=== PATIENT | male | born 1975 | race Hispanic/Latino ===

== ENCOUNTER 2017-01-24 09:05 | Observation (INO) | payer MEDICAID ==
[2017-01-24 09:05] VITALS: BMI 23.7
[2017-01-24 09:18] VITALS: TEMP 97.9
--- NOTE | 2017-01-24 09:18 | ED PDOC ---
Arrival/HPI - General Time Seen by Provider: 01/24/17 09:13 Historian: Patient - History of Present Illness Narrative History of Present Illness (Text): 01/24/17 09:14 41yr old male presents today brought in by ambulance and police for possible ETOH vs drug use. pt states he drank alcohol last night and used heroine last night. pt denies suicidal or homicidal ideations. Denies chest pain or Shortness of breath. Patient denies abdominal pain. No nausea or vomiting. Patient states he was just trying to get to [place] to his sister's house when the police picked him up. Patient denies any recent trauma or injury. No complaints Past Medical History - Provider Review Nursing Documentation Reviewed: Yes - Travel History Have you recently traveled outside [place] w/in the past 3 mons?: No - Past History Past History: Non-Contributing - Infectious Disease Hx of Infectious Diseases: None - Tetanus Immunization Tetanus Immunization: Unknown - Past Medical History Past Medical History: No Previous - Cardiac Hx Hypertension: No - Pulmonary Hx Tuberculosis: No - Neurological Hx Seizures: No - HEENT Hx HEENT Disorder: No - Renal Hx Renal Disorder: No - Endocrine/Metabolic Hx Endocrine Disorders: No - Hematological/Oncological Hx Blood Disorders: No - Integumentary Hx Dermatological Disorder: No - Musculoskeletal/Rheumatological Hx Musculoskeletal Disorders: No Hx Falls: No - Gastrointestinal Hx Gastrointestinal Disorders: No - Genitourinary/Gynecological Hx Genitourinary Disorders: No Hx Sexually Transmitted Diseases: No - Psychiatric Hx Bipolar Disorder: Yes Hx Depression: Yes Hx Substance Use: No - Past Surgical History Past Surgical History: No Previous - Surgical History Hx Orthopedic Surgery: Yes (Right ankle fx) - Anesthesia Hx Anesthesia: Yes Hx Anesthesia Reactions: No - Suicidal Assessment Feels Threatened In Home Enviroment: No Family/Social History - Physician Review Nursing Documentation Reviewed: Yes Family/Social History: Unknown Family HX Smoking Status: Heavy Smoker > 10 Cigarettes Daily Hx Alcohol Use: Yes (beer/liquor) Amount per day: 6 Hx Substance Use: No Substance used: HEROIN, COCCAINE Hx Substance Use Treatment: Yes Allergies/Home Meds Allergies/Adverse Reactions: Allergies No Known Allergies Allergy (Verified 01/24/17 09:16) Home Medications: Home Meds Medication Instructions Recorded Confirmed No Known Home Med 01/24/17 01/24/17 Review of Systems - Review of Systems Constitutional: absent: Fatigue, Fevers Respiratory: absent: SOB, Cough Cardiovascular: absent: Chest Pain, Palpitations Gastrointestinal: absent: Abdominal Pain, Constipation, Diarrhea, Nausea, Vomiting Genitourinary Male: absent: Dysuria Musculoskeletal: absent: Arthralgias, Back Pain, Neck Pain Skin: absent: Rash, Pruritis Neurological: absent: Headache, Dizziness Psychiatric: absent: Anxiety, Depression, Suicidal Ideation Physical Exam Vital Signs Temp Pulse Resp BP Pulse Ox 01/24/17 11:17 55 L 18 107/68 100 01/24/17 09:18 97.9 F 74 18 132/74 96 - Systems Exam Head: Present: Atraumatic Mouth: Present: Moist Mucous Membranes Respiratory/Chest: Present: Clear to Auscultation Cardiovascular: Present: Regular Rate and Rhythm Abdomen: No: Tenderness Neurological: Present: GCS=15 Skin: Present: Warm, Dry, Normal Color, Other (tract barry noted to forearms bilaterally without erythema, edema or tenderness.) Psychiatric: Present: Alert, Oriented x 3. No: Suicidal Ideation, Homicidal Ideation Medical Decision Making ED Course and Treatment: 01/24/17 09:19 41yr old male with hx of heroine use and etoh use. alert and oriented. no distress. will observe for sobriety. fingerstick; wnl pt reassessment; pt non toxic well appearing; no distress. ambulating with steady gait. alert and oriented x 3. clinically sober; will d/c home to f/u with pmd. advised f/u with pmd; advised return if symptoms worsen,persist or if new symptoms develop. Patient verbalizes understanding of discharge instructions and need for immediate followup. all aspects of this case were discussed the attending of record. impression: substance abuse follow up with the primary care physician within the next 2 days. increase fluids return if symptoms worsen, persist or if new symptoms develop. ED OBSERVATION Discharge: Yes Date of observation admission: 01/24/17 Time of observation admission: 09:20 - Observation admission statement Patient is being placed in observation because:: substance abuse - Goals of Observation Goals of observation are:: sobriety - Progress Note Progress Note: 01/24/17 11:30 pt sleeping in er; no distress. vitals stable. 01/24/17 12:47 pt alert and oriented; no distress; eating a sandwhich in er; vitals stable; ambulates with steady gait; clinically sober; will d/c home to f/u. Disposition/Present on Arrival - Present on Arrival Any Indicators Present on Arrival: No History of DVT/PE: No History of Uncontrolled Diabetes: No Urinary Catheter: No History of Decub. Ulcer: No History Surgical Site Infection Following: None - Disposition Have Diagnosis and Disposition been Completed?: Yes Diagnosis: Polysubstance abuse Disposition: HOME/ ROUTINE Disposition Time: 12:44 Patient Plan: Discharge Patient Problems: Current Active Problems Problem Status Onset Polysubstance abuse Acute Condition: GOOD Additional Instructions: follow up with the primary care physician within the next 2 days. increase fluids return if symptoms worsen, persist or if new symptoms develop. [facility] - Follow up with primary Matt Cunningham MD [Staff Provider] - Follow up with primary [facility] – [place] [Outside] - Follow up with primary
[2017-01-24 12:54] VITALS: BP 110/70; PULSE 70; RESP 12; O2SAT 98
== END 2017-01-24 12:54 | disposition home or self-care (01) ==
LOC: ED 09:05 → EROBSV 12:50
PROVIDERS: ADMIT Emergency Medicine; ATTEND Emergency Medicine
DX: F19.10 Other psychoactive substance abuse, uncomplicated (principal)
CPT/HCPCS: 99283; G0378

== ENCOUNTER 2017-06-11 19:57 | Emergency (ER) | payer MEDICAID ==
[2017-06-11 20:04] VITALS: BMI 24.4
[2017-06-11 20:26] VITALS: BP 134/87; PULSE 62; RESP 16; TEMP 98.2; O2SAT 97
--- NOTE | 2017-06-11 21:14 | ED PDOC ---
Arrival/HPI - General Chief Complaint: Lower Extremity Problem/Injury Time Seen by Provider: 06/11/17 20:01 Historian: Patient - History of Present Illness Narrative History of Present Illness (Text): 06/11/17 21:09 42yo male [place] [employer] for complaint of b/l foot pain. Patient states he walks a lot while wearing boot and developed blister. Notes same foot pain x months now. States pain is usually with ambulation. Did not take any medication for his pain. Denies edema, calf pain, redness, any other complaint. Past Medical History - Provider Review Nursing Documentation Reviewed: Yes - Past History Past History: Non-Contributing - Infectious Disease Hx of Infectious Diseases: None - Tetanus Immunization Tetanus Immunization: Unknown - Past Medical History Past Medical History: No Previous - Cardiac Hx Cardiac Disorders: No Hx Hypertension: No - Pulmonary Hx Tuberculosis: No - Neurological HX Cerebrovascular Accident: No Hx Seizures: No - HEENT Hx HEENT Disorder: No - Renal Hx Renal Disorder: No - Endocrine/Metabolic Hx Endocrine Disorders: No - Hematological/Oncological Hx Cancer: No - Integumentary Hx Dermatological Disorder: No - Musculoskeletal/Rheumatological Hx Musculoskeletal Disorders: No Hx Falls: No - Gastrointestinal Hx Gastrointestinal Disorders: No - Genitourinary/Gynecological Hx Sexually Transmitted Diseases: No - Psychiatric Hx Bipolar Disorder: Yes Hx Depression: Yes Hx Substance Use: Yes - Past Surgical History Past Surgical History: No Previous - Surgical History Hx Orthopedic Surgery: Yes (Right ankle fx) - Anesthesia Hx Anesthesia: Yes Hx Anesthesia Reactions: No - Suicidal Assessment Feels Threatened In Home Enviroment: No Family/Social History - Physician Review Nursing Documentation Reviewed: Yes Family/Social History: Unknown Family HX Smoking Status: Heavy Smoker > 10 Cigarettes Daily Hx Alcohol Use: Yes (beer/liquor) Amount per day: 6 Hx Substance Use: Yes Substance used: HEROIN, COCCAINE Hx Substance Use Treatment: Yes Allergies/Home Meds Allergies/Adverse Reactions: Allergies No Known Allergies Allergy (Verified 02/14/17 19:46) Review of Systems - Physician Review All systems were reviewed & negative as marked: Yes - Review of Systems Constitutional: Normal Eyes: Normal ENT: Normal Respiratory: Normal Cardiovascular: Normal Gastrointestinal: Normal Genitourinary Male: Normal Musculoskeletal: Arthralgias (B/L foot pain) Skin: Normal Neurological: Normal Endocrine: Normal Hemo/Lymphatic: Normal Psychiatric: Normal Physical Exam Vital Signs Reviewed: Yes Vital Signs Temp Pulse Resp BP Pulse Ox 06/11/17 20:04 98.2 F 62 16 134/87 97 Temperature: Afebrile Blood Pressure: Normal Pulse: Regular Respiratory Rate: Normal Appearance: Positive for: Well-Appearing, Non-Toxic, Comfortable Pain Distress: None Mental Status: Positive for: Alert and Oriented X 3 - Systems Exam Head: Present: Atraumatic, Normocephalic Pupils: Present: PERRL Extroacular Muscles: Present: EOMI Conjunctiva: Present: Normal Mouth: Present: Moist Mucous Membranes Neck: Present: Normal Range of Motion Respiratory/Chest: Present: Clear to Auscultation, Good Air Exchange. No: Respiratory Distress, Accessory Muscle Use Cardiovascular: Present: Regular Rate and Rhythm, Normal S1, S2. No: Murmurs Abdomen: Present: Normal Bowel Sounds. No: Tenderness, Distention, Peritoneal Signs Back: Present: Normal Inspection Upper Extremity: Present: Normal Inspection. No: Cyanosis, Edema Lower Extremity: Present: Normal Inspection, NORMAL PULSES, Normal ROM, Tenderness, Neurovascularly Intact, Other (Blister noted on right lateral foot) . No: Edema, CALF TENDERNESS, Swelling, Erythema, Deformity, Temperature Abnormalties Neurological: Present: GCS=15, CN II-XII Intact, Speech Normal Skin: Present: Warm, Dry, Normal Color. No: Rashes Psychiatric: Present: Alert, Oriented x 3, Normal Insight, Normal Concentration Medical Decision Making ED Course and Treatment: 06/11/17 22:50 B/L foot xray - No acute finding PT was treated with ibuprofen. Blister cleaned and bacitracin applied. Referred to a Area Captain - RAD Interpretation Radiology Orders: 06/11/17 20:37 FOOT 3 VIEWS BI [RAD] Stat - Medication Orders Current Medication Orders: Discontinued Medications Ibuprofen (Motrin Tab) 600 mg PO STAT STA Stop: 06/11/17 21:35 Last Admin: 06/11/17 21:57 Dose: 600 mg MAR Pain/Vitals Document 06/11/17 21:57 SC (Rec: 06/11/17 21:58 SC [id number]) Pain Reassessment Is This A Pain ReAssessment? No Sleep Is patient sleeping during reassessment? No Presence of Pain Presence of Pain Yes Pain Scale Used Pain Scale Used Numeric Location Left, Right or Bilateral Bilateral Pain Location Body Site Foot Intensity 5 Scale Used Numeric Disposition/Present on Arrival - Present on Arrival Any Indicators Present on Arrival: No History of DVT/PE: No History of Uncontrolled Diabetes: No Urinary Catheter: No History of Decub. Ulcer: No History Surgical Site Infection Following: None - Disposition Have Diagnosis and Disposition been Completed?: Yes Diagnosis: Foot pain Disposition: HOME/ ROUTINE Disposition Time: 21:40 Patient Plan: Discharge Condition: STABLE Discharge Instructions (ExitCare): Arthralgia (ED) Additional Instructions: Follow up with a Area Captain Return to ED for any new or worsening symptoms Cleared for incarceration Prescriptions: Ibuprofen [Motrin Tab] 600 mg PO Q6 #20 tab Referrals: Elroy Arzola APN [Primary Care Provider] - Follow up with primary Forms: [employer] ([place]i)
--- NOTE | 2017-06-12 08:33 | RAD ---
PROCEDURE: Bilateral Feet Radiographs. HISTORY: foot pain COMPARISON: None. FINDINGS: BONES: Right Foot: Normal. No fracture. Left Foot: Normal. No fracture. JOINTS: Right Foot: Normal. No osteoarthritis. Left Foot: Normal. No osteoarthritis. SOFT TISSUES: Right Foot: Normal. Left Foot: Normal. OTHER FINDINGS: None. IMPRESSION: Normal radiographs of the feet.
--- NOTE | 2017-06-12 21:00 | CARD ---
APPROVED REPORT EKG Measurement Heart [id number] <Conclusion> Marked sinus bradycardia Abnormal ECG
== END 2017-06-11 22:00 | disposition home or self-care (01) ==
LOC: ED 19:57
DX: M79.672 Pain in left foot (principal); M79.671 Pain in right foot; F17.210 Nicotine dependence, cigarettes, uncomplicated

== ENCOUNTER 2017-06-26 11:13 | Emergency (ER) | payer MEDICAID ==
[2017-06-26 11:13] VITALS: BMI 24.4
[2017-06-26 11:34] VITALS: TEMP 97.6; O2SAT 99
--- NOTE | 2017-06-26 12:21 | ED PDOC ---
Arrival/HPI - General Chief Complaint: Alcohol Ingestion Time Seen by Provider: 06/26/17 11:26 Historian: Patient, EMS - History of Present Illness Narrative History of Present Illness (Text): 06/26/17 12:00 A 42 year old male, whose past medical history includes chronic foot pain bilaterally, etoh and drug dependence, presents to the emergency department via EMS for chronic foot pain, which the patient states he has had for the last several years. EMS states they found him washing his feet. He reports the pain is bilateral and is in the heel and plantar aspect. He states he's been taking Aleve for the pain and his last dosage was yesterday. He also admits to using etoh, heroin, and cocaine. His last etoh use was today and his last dug use was yesterday. He notes he sniffs and uses IV when using heroin. He denies any numbness, weakness, chest pain, or any other complaints at this time. Time/Duration: Other Symptom Onset: Other (chronic) Symptom Course: Unchanged Activities at Onset: Light Context: Walking Past Medical History - Provider Review Nursing Documentation Reviewed: Yes - Past History Past History: Non-Contributing - Infectious Disease Hx of Infectious Diseases: None - Tetanus Immunization Tetanus Immunization: Unknown - Past Medical History Past Medical History: No Previous - Cardiac Hx Cardiac Disorders: No - Pulmonary Hx Tuberculosis: No - Neurological HX Cerebrovascular Accident: No - HEENT Hx HEENT Disorder: No - Renal Hx Renal Disorder: No - Endocrine/Metabolic Hx Endocrine Disorders: No - Hematological/Oncological Hx Cancer: No - Integumentary Hx Dermatological Disorder: No - Musculoskeletal/Rheumatological Hx Musculoskeletal Disorders: No - Gastrointestinal Hx Gastrointestinal Disorders: No - Genitourinary/Gynecological Hx Sexually Transmitted Diseases: No - Psychiatric Hx Bipolar Disorder: Yes Hx Depression: Yes Hx Substance Use: Yes (last used last night) Other/Comment: Drug and alcohol abuse - Past Surgical History Past Surgical History: No Previous - Surgical History Hx Orthopedic Surgery: Yes (Right ankle fx) - Anesthesia Hx Anesthesia: Yes Hx Anesthesia Reactions: No - Suicidal Assessment Feels Threatened In Home Enviroment: No Family/Social History - Physician Review Nursing Documentation Reviewed: Yes Family/Social History: No Known Family HX Smoking Status: Heavy Smoker > 10 Cigarettes Daily Hx Alcohol Use: Yes (beer/liquor) Frequency of alcohol use: Daily Amount per day: 6 Hx Substance Use: Yes (last used last night) Substance used: HEROIN, COCCAINE Hx Substance Use Treatment: Yes Allergies/Home Meds Allergies/Adverse Reactions: Allergies No Known Allergies Allergy (Verified 06/26/17 11:29) Home Medications: Home Meds Medication Instructions Recorded Confirmed No Known Home Med 06/26/17 06/26/17 Review of Systems - Physician Review All systems were reviewed & negative as marked: Yes - Review of Systems Cardiovascular: absent: Chest Pain Musculoskeletal: Other (bilateral foot pain ) Neurological: absent: Other (numbness or weakness) Physical Exam Vital Signs Reviewed: Yes Vital Signs Temp Pulse Resp BP Pulse Ox 06/26/17 13:10 80 17 120/75 99 06/26/17 11:33 97.6 F 83 19 117/69 99 Temperature: Afebrile Blood Pressure: Normal Pulse: Regular Respiratory Rate: Normal Appearance: Positive for: Well-Appearing, Non-Toxic, Comfortable Pain Distress: None Mental Status: Positive for: Alert and Oriented X 3 - Systems Exam Head: Present: Atraumatic, Normocephalic Pupils: Present: PERRL Extroacular Muscles: Present: EOMI Conjunctiva: Present: Normal Mouth: Present: Moist Mucous Membranes Neck: Present: Normal Range of Motion Respiratory/Chest: Present: Clear to Auscultation, Good Air Exchange. No: Respiratory Distress, Accessory Muscle Use Cardiovascular: Present: Regular Rate and Rhythm, Normal S1, S2. No: Murmurs Abdomen: Present: Normal Bowel Sounds. No: Tenderness, Distention, Peritoneal Signs Back: Present: Normal Inspection Upper Extremity: Present: Normal Inspection. No: Cyanosis, Edema Lower Extremity: Present: Other (bilateral calluses; no redness; no warmth; tenderness to calluses; normal sensation and strength intact) Neurological: Present: GCS=15, CN II-XII Intact, Speech Normal Skin: Present: Warm, Dry, Normal Color. No: Rashes Psychiatric: Present: Alert, Oriented x 3, Normal Insight, Normal Concentration Medical Decision Making ED Course and Treatment: 06/26/17 12:05 Impression: Differential Diagnosis included but are not limited to: Foot pain secondary to neuropathy vs. plantar fasciitis vs. etoh and drug dependence Plan: -- Fingerstick -- Toradol -- Reassess and disposition Progress Notes: 06/26/17 12:05 Pateint is clinically sober at this time. He is able to walk with no ataxia. No slurred speech. I will refer the patient to detox centers. He said he's aware of [facility]'s program so he will go there. - Lab Interpretations Lab Results: Lab Results 06/26/17 11:49: POC Glucose (mg/dL) 113 H - Medication Orders Current Medication Orders: Discontinued Medications Ketorolac Tromethamine (Toradol) 60 mg IM STAT STA Stop: 06/26/17 11:44 Last Admin: 06/26/17 11:53 Dose: 60 mg MAR Pain Assessment Document 06/26/17 11:53 SF (Rec: 06/26/17 11:53 SF [facility] [id number] Pain Reassessment Is this a pain reassessment? Yes Sleep Is patient sleeping during reassessment? No Presence of Pain Presence of Pain Yes Pain Scale Used Pain Scale Used Numeric Location Left, Right or Bilateral Bilateral Pain Location Body Site Foot IM Administration Charges Document 06/26/17 11:53 SF (Rec: 06/26/17 11:53 [place] [facility] [id number] Injection Site MAR Injection Site Left Deltoid Charges for Administration # of IM Administrations 1 - Scribe Statement The provider has reviewed the documentation as recorded by the Patriciaibsonya Harris Provider Scribe Attestation: All medical record entries made by the Scribe were at my direction and personally dictated by me. I have reviewed the chart and agree that the record accurately reflects my personal performance of the history, physical exam, medical decision making, and the department course for this patient. I have also personally directed, reviewed, and agree with the discharge instructions and disposition. Disposition/Present on Arrival - Present on Arrival Any Indicators Present on Arrival: No History of DVT/PE: No History of Uncontrolled Diabetes: No Urinary Catheter: No History of Decub. Ulcer: No History Surgical Site Infection Following: None - Disposition Have Diagnosis and Disposition been Completed?: Yes Diagnosis: Opiate dependence, Alcohol dependence, Foot pain Disposition: HOME/ ROUTINE Disposition Time: 13:00 Patient Plan: Discharge Condition: IMPROVED Discharge Instructions (ExitCare): Polysubstance Abuse (ED), Arthralgia (ED) Additional Instructions: Mr Leiv, thank you for letting us take care of you today. Your provider was Dr. Aleman. You were treated for Alcohol and Drug Dependence, Foot Pain. The emergency medical care you received today was directed at your acute symptoms. If you were prescribed any medication, please fill it and take as directed. It may take several days for your symptoms to resolve. Return to the Emergency Department if your symptoms worsen, do not improve, or if you have any other problems. Please contact your doctor or call one of the physicians/clinics you have been referred to that are listed on the Patient Visit Information form that is included in your discharge packet. Bring any paperwork you were given at discharge with you along with any medications you are taking to your follow up visit. Our treatment cannot replace ongoing medical care by a primary care provider (PCP) outside of the emergency department. Thank you for allowing the [facility] team to be part of your care today. If you had an X-Ray or CT scan: A Radiologist will review the ED reading if any change in treatment is needed we will contact you. If you had a blood, urine, or wound culture: It will take several days for the results, if any change in treatment is needed we will contact you. If you had an STI test: It will take 48 hours for the results. Please call after 1 week if you have not heard back. Referrals: Angela Alexander MD [Primary Care Provider] - Follow up with primary Forms: [employer] (M[place]ese)
[2017-06-26 13:12] VITALS: BP 120/75; PULSE 80; RESP 17
== END 2017-06-26 13:12 | disposition home or self-care (01) ==
LOC: ED 11:13
DX: M79.671 Pain in right foot (principal); F10.20 Alcohol dependence, uncomplicated; F11.20 Opioid dependence, uncomplicated; F17.210 Nicotine dependence, cigarettes, uncomplicated
CPT/HCPCS: 82948; 96372; 99284; J1885

== ENCOUNTER 2017-07-20 04:37 | Emergency (ER) | payer MEDICAID ==
[2017-07-20 04:37] VITALS: BMI 24.4
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
[2017-07-20 04:54] VITALS: TEMP 98.9
[2017-07-20] MEDS ORDERED: Morphine 2 mg/ml ISec IM STA (05:15)
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
[2017-07-20] MEDS ORDERED: TDAP Vaccine 0.5 mL Syr IM ONE (07:49)
[2017-07-20 08:08] VITALS: BP 120/78; PULSE 89; RESP 18; O2SAT 98
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
== END 2017-07-20 09:29 | disposition home or self-care (01) ==
LOC: ED 04:37
DX: S01.01XA Laceration without foreign body of scalp, initial encounter (principal); S01.111A Laceration without foreign body of right eyelid and periocular area, initial encounter; S52.002A Unspecified fracture of upper end of left ulna, initial encounter for closed fracture; Y04.0XXA Assault by unarmed brawl or fight, initial encounter; Z23 Encounter for immunization
CPT/HCPCS: 12001; 12011; 70450; 73090; 90471; 90715; 96372; 99284; J2270

== ENCOUNTER 2017-07-28 10:40 | Emergency (ER) | payer MEDICAID ==
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
[2017-07-28 11:34] VITALS: BMI 30.9
[2017-07-28 12:20] VITALS: RESP 16; TEMP 97.9; O2SAT 100
[2017-07-28 13:25] VITALS: BP 138/82; PULSE 82
== END 2017-07-28 13:15 | disposition home or self-care (01) ==
LOC: ED 10:40
DX: S52.002D Unspecified fracture of upper end of left ulna, subsequent encounter for closed fracture with routine healing (principal); Y04.0XXD Assault by unarmed brawl or fight, subsequent encounter

== ENCOUNTER 2017-08-06 14:20 | Emergency (ER) | payer MEDICAID ==
[2017-08-06 14:21] VITALS: BMI 21.2
[2017-08-06 15:17] VITALS: TEMP 98.3
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
--- NOTE | 2017-08-06 19:30 | ED PDOC ---
Arrival/HPI - General Chief Complaint: Upper Extremity Problem/Injury Time Seen by Provider: 08/06/17 14:21 Historian: Patient - History of Present Illness Narrative History of Present Illness (Text): 08/06/17 19:23 42-year-old male presents today with left arm pain. Patient states he had fracture to the left arm weeks ago. Patient states he removed the splint. Patient is complaining of pain. Denies fevers or chills. Denies numbness weakness or tingling in the extremity. pt states he hasnt f/u with orthopedist. pt denies fever/chills. no cp or sob. no abdominal pain. no dizziness or weakness. no other complaints. Symptom Course: Unchanged Past Medical History - Provider Review Nursing Documentation Reviewed: Yes - Travel History Have you recently traveled outside [place] w/in the past 3 mons?: No - Past History Past History: Non-Contributing - Infectious Disease Hx of Infectious Diseases: None - Tetanus Immunization Tetanus Immunization: Unknown - Past Medical History Past Medical History: No Previous - Cardiac Hx Cardiac Disorders: No - Pulmonary Hx Tuberculosis: No - Neurological HX Cerebrovascular Accident: No - HEENT Hx HEENT Disorder: No - Renal Hx Renal Disorder: No - Endocrine/Metabolic Hx Endocrine Disorders: No - Hematological/Oncological Hx Cancer: No - Integumentary Hx Dermatological Disorder: No - Musculoskeletal/Rheumatological Hx Musculoskeletal Disorders: No - Gastrointestinal Hx Gastrointestinal Disorders: No - Genitourinary/Gynecological Hx Sexually Transmitted Diseases: No - Psychiatric Hx Bipolar Disorder: Yes Hx Depression: Yes Hx Substance Use: Yes (last used last night) Other/Comment: Drug and alcohol abuse - Past Surgical History Past Surgical History: No Previous - Surgical History Hx Orthopedic Surgery: Yes (Right ankle fx) - Anesthesia Hx Anesthesia: Yes Hx Anesthesia Reactions: No - Suicidal Assessment Feels Threatened In Home Enviroment: No Family/Social History - Physician Review Nursing Documentation Reviewed: Yes Family/Social History: Unknown Family HX Smoking Status: Light Smoker < 10 Cigarettes Daily Hx Alcohol Use: Yes (beer/liquor) Frequency of alcohol use: Socially Amount per day: 6 Hx Substance Use: Yes (last used last night) Substance used: HEROIN, COCCAINE Hx Substance Use Treatment: Yes Allergies/Home Meds Allergies/Adverse Reactions: Allergies No Known Allergies Allergy (Verified 08/06/17 14:37) Home Medications: Home Meds Medication Instructions Recorded Confirmed No Known Home Med 12/13/17 12/13/17 Review of Systems - Review of Systems Constitutional: absent: Fatigue, Fevers Respiratory: absent: SOB, Cough Cardiovascular: absent: Chest Pain, Palpitations Gastrointestinal: absent: Abdominal Pain, Nausea, Vomiting Musculoskeletal: Arthralgias Skin: absent: Rash, Pruritis Neurological: absent: Headache, Dizziness Psychiatric: absent: Anxiety, Depression Physical Exam Vital Signs Reviewed: Yes Vital Signs Temp Pulse Resp BP Pulse Ox 08/06/17 19:35 90 16 142/87 100 08/06/17 17:31 75 18 143/65 99 08/06/17 16:03 79 18 145/69 99 08/06/17 14:59 98.3 F 86 17 148/73 99 08/06/17 14:32 98.2 F 90 16 126/82 100 Temperature: Afebrile Blood Pressure: Normal Pulse: Regular Respiratory Rate: Normal Appearance: Positive for: Well-Appearing, Non-Toxic, Comfortable Pain Distress: None Mental Status: Positive for: Alert and Oriented X 3 - Systems Exam Mouth: Present: Moist Mucous Membranes Neck: Present: Normal Range of Motion Respiratory/Chest: Present: Clear to Auscultation Cardiovascular: Present: Regular Rate and Rhythm Upper Extremity: Present: Normal ROM, NORMAL PULSES, Tenderness (left arm; + ttp over midshaft forearm; no edema, no erythema; no ecchymosis; sensation and distal pulses intact; cap refill <2. ), Neurovascularly Intact, Capillary Refill < 2s. No: Swelling, Erythema, Deformity Neurological: Present: GCS=15, Speech Normal Skin: Present: Warm, Dry, Normal Color. No: Rashes Psychiatric: Present: Alert, Oriented x 3 Medical Decision Making ED Course and Treatment: 08/06/17 19:32 42-year-old male with fracture to the left ulna on 07/20/17 without following up with the orthopedist. He presents today with continued arm pain. He has removed his own splint. X-rays of the left forearm:FINDINGS: BONES: The proximal ulnar diaphyseal mildly comminuted fracture with large butterfly fracture fragment has fracture fragments approximately 3 to 4 mm this is accentuated on the current projection. No other significant displacement is noted. No bridging callus formation suggested JOINT SPACES: Unremarkable. OTHER FINDINGS: None. IMPRESSION: Mildly comminuted proximal ulnar shaft fracture with dominant butterfly fracture fragment - from distal ulna approximate 4 mm. This separation of fracture fragments is accentuated on the current study - probably due projectional differences. No greater displacement or interval angulation deformity noted. No interval healing callus formation appreciated. Follow-up advised Case discussed with dr. Olguin in depth. He reviewed the x-rays. States that the patient should be placed into a sugar tong splint and follow up outpatient. Patient given Toradol for pain. Patient placed into a sugar tong splint. Sling applied. Patient requesting prescription for pain medications. I have advised the patient that I will give him one tramadol for pain here and he can take Motrin for pain at home. Patient with a known history of IV drug use and prior overdose. Impression: Arm pain, fracture ulna You must follow-up with the orthopedist as soon as possible motrin every 6 hours as needed for pain. return if symptoms worsen,persist or if new symptoms develop. - RAD Interpretation Radiology Orders: 08/06/17 14:58 FOREARM LEFT [RAD] Stat - Medication Orders Current Medication Orders: Discontinued Medications Ketorolac Tromethamine (Toradol) 60 mg IM STAT STA Stop: 08/06/17 14:59 Last Admin: 08/06/17 15:04 Dose: 60 mg MAR Pain Assessment Document 08/06/17 15:04 [place] (Rec: 08/06/17 15:05 [id number]) Pain Reassessment Is this a pain reassessment? No Sleep Is patient sleeping during reassessment? No Presence of Pain Presence of Pain Yes Location Left, Right or Bilateral Left Pain Location Body Site Arm IM Administration Charges Document 08/06/17 15:04 [place] (Rec: 08/06/17 15:05 [id number]) Injection Site MAR Injection Site Left Gluteus Leonardo Charges for Administration # of IM Administrations 1 Re-Assess: MAR Pain Assessment Document 08/06/17 16:04 [place] (Rec: 08/06/17 19:27 [id number]) Pain Reassessment Is this a pain reassessment? Yes Sleep Is patient sleeping during reassessment? Yes Tramadol HCl (Ultram) 50 mg PO STAT STA Stop: 08/06/17 19:23 Last Admin: 08/06/17 19:32 Dose: 50 mg MAR Pain Assessment Document 08/06/17 19:32 [place] (Rec: 08/06/17 19:32 [id number]) Pain Reassessment Is this a pain reassessment? Yes Sleep Is patient sleeping during reassessment? No Presence of Pain Presence of Pain Yes Procedures - Splinting Location: left arm Hand-Made Type: fiberglass Splint: sugar-tong Pre-Proc Neuro Vasc Exam: normal Post-Proc Neuro Vasc Exam: normal Disposition/Present on Arrival - Present on Arrival Any Indicators Present on Arrival: No History of DVT/PE: No History of Uncontrolled Diabetes: No Urinary Catheter: No History of Decub. Ulcer: No History Surgical Site Infection Following: None - Disposition Have Diagnosis and Disposition been Completed?: Yes Diagnosis: Arm pain, Hx of fracture Disposition: HOME/ ROUTINE Disposition Time: 18:20 Patient Plan: Discharge Condition: GOOD Discharge Instructions (ExitCare): Arm Fracture in Adults (ED) Additional Instructions: You must follow-up with the orthopedist as soon as possible motrin every 6 hours as needed for pain. return if symptoms worsen,persist or if new symptoms develop. Referrals: Marina Alexander MD [Primary Care Provider] - Follow up with primary Wayne Olguin DO [Staff Provider] - Follow up with primary [facility] [Outside] - Follow up with primary [facility] [Outside] - Follow up with primary Forms: [employer] ([place])
[2017-08-06 19:55] VITALS: BP 142/87; PULSE 90; RESP 16; O2SAT 100
== END 2017-08-06 19:35 | disposition home or self-care (01) ==
LOC: ED 14:20
DX: M79.602 Pain in left arm (principal); S52.202A Unspecified fracture of shaft of left ulna, initial encounter for closed fracture; X58.XXXA Exposure to other specified factors, initial encounter; F17.210 Nicotine dependence, cigarettes, uncomplicated
CPT/HCPCS: 29105; 73090; 96372; 99284; J1885

== ENCOUNTER 2018-03-04 00:28 | Emergency (ER) | payer SELFPAY ==
[2018-03-04 00:28] VITALS: BMI 21.2
[2018-03-04 00:56] VITALS: TEMP 97.3
--- NOTE | 2018-03-04 01:17 | ED PDOC ---
Arrival/HPI - General Chief Complaint: Pain, Chronic Time Seen by Provider: 03/04/18 01:04 Historian: Patient - History of Present Illness Narrative History of Present Illness (Text): 03/04/18 01:12 42yo male with pmhx of substance abuse, alcohol abuse, depression who present with complaint of chronic left shoulder pain and b/l extremities burning pain. Notes history of these pain for weeks. States he was suppose to see his PMD for a referral, but have not called his insurance company for a new PMD. He denies any new trauma, focal weakness, chest pain, SOB, dizziness. Past Medical History - Provider Review Nursing Documentation Reviewed: Yes - Past History Past History: Non-Contributing - Infectious Disease Hx of Infectious Diseases: None - Tetanus Immunization Tetanus Immunization: Unknown - Past Medical History Past Medical History: No Previous - Cardiac Hx Cardiac Disorders: No - Pulmonary Hx Tuberculosis: No - Neurological HX Cerebrovascular Accident: No - HEENT Hx HEENT Disorder: No - Renal Hx Renal Disorder: No - Endocrine/Metabolic Hx Endocrine Disorders: No - Hematological/Oncological Hx Cancer: No - Integumentary Hx Dermatological Disorder: No - Musculoskeletal/Rheumatological Hx Musculoskeletal Disorders: No - Gastrointestinal Hx Gastrointestinal Disorders: No - Genitourinary/Gynecological Hx Sexually Transmitted Diseases: No - Psychiatric Hx Bipolar Disorder: Yes Hx Depression: Yes Hx Substance Use: Yes - Past Surgical History Past Surgical History: No Previous - Surgical History Hx Orthopedic Surgery: Yes (Right ankle fx) - Anesthesia Hx Anesthesia: Yes Hx Anesthesia Reactions: No - Suicidal Assessment Feels Threatened In Home Enviroment: No Family/Social History - Physician Review Nursing Documentation Reviewed: Yes Family/Social History: Unknown Family HX Smoking Status: Heavy Smoker > 10 Cigarettes Daily Hx Alcohol Use: Yes (beer/liquor) Amount per day: 6 Hx Substance Use: Yes Substance used: HEROIN, COCCAINE,opiates Hx Substance Use Treatment: Yes Allergies/Home Meds Allergies/Adverse Reactions: Allergies No Known Allergies Allergy (Verified 08/28/17 21:33) Home Medications: Home Meds Medication Instructions Recorded Confirmed Divalproex [Depakote ER] 500 mg PO BID 08/28/17 08/28/17 Escitalopram [Lexapro] 10 mg PO BID 08/28/17 08/28/17 Review of Systems - Physician Review All systems were reviewed & negative as marked: Yes - Review of Systems Constitutional: Normal Eyes: Normal ENT: Normal Respiratory: Normal Cardiovascular: Normal Gastrointestinal: Normal Genitourinary Male: Normal Musculoskeletal: Arthralgias (Left shoulder pain) Skin: Normal Neurological: Normal Endocrine: Normal Hemo/Lymphatic: Normal Psychiatric: Normal Physical Exam Vital Signs Reviewed: Yes Vital Signs Temp Pulse Resp BP Pulse Ox 03/04/18 00:54 97.3 F L 88 16 140/78 97 Temperature: Afebrile Blood Pressure: Normal Pulse: Regular Respiratory Rate: Normal Appearance: Positive for: Well-Appearing, Non-Toxic, Comfortable Pain Distress: None Mental Status: Positive for: Alert and Oriented X 3 - Systems Exam Head: Present: Atraumatic, Normocephalic Pupils: Present: PERRL Extroacular Muscles: Present: EOMI Conjunctiva: Present: Normal Mouth: Present: Moist Mucous Membranes Neck: Present: Normal Range of Motion Respiratory/Chest: Present: Clear to Auscultation, Good Air Exchange. No: Respiratory Distress, Accessory Muscle Use Cardiovascular: Present: Regular Rate and Rhythm, Normal S1, S2. No: Murmurs Abdomen: No: Tenderness, Distention, Peritoneal Signs Back: Present: Normal Inspection Upper Extremity: Present: Normal ROM, NORMAL PULSES, Neurovascularly Intact, Capillary Refill < 2s. No: Cyanosis, Edema, Tenderness, Swelling, Erythema, Temperature Abnormalties, Deformity Lower Extremity: Present: Normal Inspection. No: Edema Neurological: Present: GCS=15, CN II-XII Intact, Speech Normal Skin: Present: Warm, Dry, Normal Color. No: Rashes Psychiatric: Present: Alert, Oriented x 3, Normal Insight, Normal Concentration Disposition/Present on Arrival - Present on Arrival Any Indicators Present on Arrival: No History of DVT/PE: No History of Uncontrolled Diabetes: No Urinary Catheter: No History of Decub. Ulcer: No History Surgical Site Infection Following: None - Disposition Have Diagnosis and Disposition been Completed?: Yes Diagnosis: Shoulder pain Disposition: HOME/ ROUTINE Disposition Time: 01:30 Patient Plan: Discharge Condition: STABLE Discharge Instructions (ExitCare): Shoulder Pain (DC) Additional Instructions: Follow up with Orthopedist/Neurologist Return to ED for any new or worsening symptoms Prescriptions: Naproxen [Naprosyn] 500 mg PO BID #20 tablet Referrals: Que Amaya III, MD [Medical Doctor] - Follow up with primary Adeel Diaz MD [Staff Provider] - Follow up with primary
[2018-03-04 03:05] VITALS: BP 124/79; PULSE 69; RESP 17; O2SAT 99
== END 2018-03-04 01:38 | disposition home or self-care (01) ==
LOC: ED 00:28
DX: M25.512 Pain in left shoulder (principal); F17.210 Nicotine dependence, cigarettes, uncomplicated
CPT/HCPCS: 96372; 99283; J1885

== ENCOUNTER 2018-04-03 10:59 | Emergency (ER) | payer MEDICAID ==
[2018-04-03 11:18] VITALS: TEMP 97.8; BMI 26.0
--- NOTE | 2018-04-03 11:48 | ED PDOC ---
Arrival/HPI - History of Present Illness Time/Duration: 24 hours Symptom Course: Improving Activities at Onset: Rest Context: Standing, Walking <Raúl Garcia - Last Filed: 04/03/18 18:06> <Alfredo Padilla - Last Filed: 04/03/18 18:53> - General Chief Complaint: Lower Extremity Problem/Injury Time Seen by Provider: 04/03/18 11:22 - History of Present Illness Narrative History of Present Illness (Text): 04/03/18 12:26 Mr Renner is a 43 year old male with unknown PMHx, history of bipolar/depression who presents with bilateral foot pain and exhaustion. Patient has been on and of homeless for last couple of years, recently living in his car, and has had increasing foot pain for 2-3 months as well. The pain is sharp pain on the soles of his feet, which sometimes shoots up his legs bilaterally. Today the patient states he was walking outside in the sun and felt exhausted and like he might pass out, but denies passing out or falling. He has been drinking plenty of fluids and also reports urinating more frequently than usual. Patient states he has problems with bipolar and depression. He has been feeling like his depression has been worse than usual and has gotten out of control. He has had some suicidal thoughts but does not have any concrete plans for hurting himself. The patient has seen a psychiatrist in the past and has been hospitalized for psych issues years ago but does not currently have a psychiatrist or primary doctor. He also admits to self medicating on and off with alcohol and heroin (intranasal). He denies drinking alcohol recently but has recently used heroin. Pt denies homicidal ideation or hallucinations/ delusions. Discussed with patient about getting him into a care home, and he is open to having social work set him up with a care home. (Raúl Garcia) Past Medical History - Provider Review Nursing Documentation Reviewed: Yes <Raúl Garcia - Last Filed: 04/03/18 18:06> - Provider Review Nursing Documentation Reviewed: Yes - Past History Past History: Non-Contributing - Infectious Disease Hx of Infectious Diseases: None - Tetanus Immunization Tetanus Immunization: Unknown - Past Medical History Past Medical History: No Previous - Cardiac Hx Cardiac Disorders: No - Pulmonary Hx Tuberculosis: No - Neurological HX Cerebrovascular Accident: No - HEENT Hx HEENT Disorder: No - Renal Hx Renal Disorder: No - Endocrine/Metabolic Hx Endocrine Disorders: No - Hematological/Oncological Hx Cancer: No - Integumentary Hx Dermatological Disorder: No - Musculoskeletal/Rheumatological Hx Musculoskeletal Disorders: No - Gastrointestinal Hx Gastrointestinal Disorders: No - Genitourinary/Gynecological Hx Sexually Transmitted Diseases: No - Psychiatric Hx Bipolar Disorder: Yes Hx Depression: Yes Hx Substance Use: Yes - Past Surgical History Past Surgical History: No Previous - Surgical History Hx Orthopedic Surgery: Yes (Right ankle fx) - Anesthesia Hx Anesthesia: Yes Hx Anesthesia Reactions: No Hx Malignant Hyperthermia: No - Suicidal Assessment Feels Threatened In Home Enviroment: No <PadillaAlfredo - Last Filed: 04/03/18 18:53> Family/Social History - Physician Review Nursing Documentation Reviewed: Yes Family/Social History: Unknown Family HX <Raúl Garcia - Last Filed: 04/03/18 18:06> - Physician Review Nursing Documentation Reviewed: Yes Smoking Status: Heavy Smoker > 10 Cigarettes Daily Hx Alcohol Use: Yes (beer/liquor) Amount per day: 6 Hx Substance Use: Yes Substance used: HEROIN, COCCAINE,opiates Hx Substance Use Treatment: Yes <RandyAlfredo - Last Filed: 04/03/18 18:53> Allergies/Home Meds <Raúl Garcia - Last Filed: 04/03/18 18:06> <PadillaAlfredo - Last Filed: 04/03/18 18:53> Allergies/Adverse Reactions: Allergies No Known Allergies Allergy (Verified 04/03/18 11:16) Review of Systems - Physician Review All systems were reviewed & negative as marked: Yes - Review of Systems Constitutional: Fatigue. absent: Weight Change, Fevers Eyes: Normal. absent: Vision Changes, Photophobia ENT: Normal. absent: Sore Throat, Rhinorrhea Respiratory: SOB. absent: Cough, Sputum, Wheezing (+mild shortness of breath) Cardiovascular: Normal. absent: Chest Pain, Palpitations, Edema, Calf Pain Gastrointestinal: Normal. absent: Abdominal Pain, Constipation, Nausea, Vomiting Genitourinary Male: Frequency. absent: Dysuria, Hematuria Musculoskeletal: Normal. absent: Arthralgias, Back Pain, Neck Pain Skin: Normal. absent: Rash, Pruritis, Skin Lesions, Laceration Neurological: Dizziness. absent: Headache, Focal Weakness, Speech Changes Endocrine: Normal, Polyuria, Polydipsia Psychiatric: Depression, Suicidal Ideation (Patient does not have plans to hurt himself), Other (Denies homicidal ideation, hallucinations, delusions) <HenrymaraRaúl - Last Filed: 04/03/18 18:06> - Physician Review All systems were reviewed & negative as marked: Yes <Alfredo Padilla - Last Filed: 04/03/18 18:53> Physical Exam Vital Signs Reviewed: Yes Temperature: Afebrile Blood Pressure: Normal Pulse: Regular Respiratory Rate: Normal Appearance: Positive for: Non-Toxic Pain Distress: Mild Mental Status: Positive for: Alert and Oriented X 3. No: Confused, Agitated - Systems Exam Head: Present: Atraumatic, Normocephalic Pupils: Present: PERRL Extroacular Muscles: Present: EOMI Conjunctiva: Present: Normal Mouth: Present: Moist Mucous Membranes, Normal Lips, Normal Tounge (+poor dentition), Other (+poor dentition) Pharnyx: Present: Normal. No: ERYTHEMA, EXUDATE Nose (External): Present: Atraumatic Neck: Present: Normal Range of Motion. No: JVD Respiratory/Chest: Present: Clear to Auscultation, Good Air Exchange. No: Respiratory Distress, Accessory Muscle Use, Wheezes Cardiovascular: Present: Regular Rate and Rhythm, Normal S1, S2. No: Murmurs Abdomen: Present: Normal Bowel Sounds. No: Tenderness, Distention, Peritoneal Signs, Rebound, Guarding Upper Extremity: Present: Normal Inspection, NORMAL PULSES. No: Cyanosis, Edema Lower Extremity: Present: Normal Inspection, NORMAL PULSES. No: Edema, Cyanosis , Erythema Neurological: Present: GCS=15, CN II-XII Intact, Speech Normal Skin: Present: Warm, Dry, Normal Color. No: Rashes Psychiatric: Present: Alert, Oriented x 3, Normal Concentration, Normal Affect, Suicidal Ideation. No: Homicidal Ideation, Delusional, Hallucinations <HenrymaraRalú - Last Filed: 04/03/18 18:06> Vital Signs Reviewed: Yes Temperature: Afebrile Blood Pressure: Normal Pulse: Regular Respiratory Rate: Normal <Alfredo Padilla - Last Filed: 04/03/18 18:53> Vital Signs Temp Pulse Resp BP Pulse Ox 04/03/18 18:42 74 16 129/75 98 04/03/18 16:30 71 18 126/80 99 04/03/18 13:01 65 17 132/80 98 04/03/18 11:11 97.8 F 63 18 135/82 100 Medical Decision Making - EKG Interpretation Interpreted by ED Physician: Yes Type: 12 lead EKG <HenryRaúl terry - Last Filed: 04/03/18 18:06> Re-evaluation Time: 18:45 Reassessment Condition: Re-examined, Improved - Lab Interpretations I have reviewed the lab results: Yes Interpretation: Abnormal lab values (+ UTOX) - RAD Interpretation Computer Science Teacher: Radiologist - EKG Interpretation Comparison: Similar to previous EKG <Alfredo Padilla - Last Filed: 04/03/18 18:53> ED Course and Treatment: 1) Peripheral Neuropathy/bilateral foot pain * Gabapentin 300 PO * Tramadol 50 PO * CBC w/ dif, CMP, UA * b/l venous dopplers 2) Bipolar/depression and homelessness, history drug use * Urine drug screen, EtOH levels, salicylate levels, acetaminophen levels, CK, TSH * Crisis psych consult * oil field worker contacted, will discuss care home placement with patient * Explained to patient he should return to ED if at any time he experiences symptoms including suicidal or homicidal ideation, hallucinations or delusions. 3) Dehydration * 1000 cc fluid bolus * EKG 04/03/18 13:04 Crisis consult- patient did not meet criteria of inpatient psych admission. Patient was encouraged to follow up with PCP and psych as outpatient Social work - discussed care home placement with patient, and patient was provided with information regarding local shelters 04/03/18 18:18 (Raúl Garcia) 04/03/18 13:12 Impression: 43 year old male presents to the Emergency department for b/l foot pain, severe exhaustion/weakness/depression Patient seen with the resident. I performed a physical exam of the patient and discussed their management with resident. I have reviewed the resident note and agree with the assessment and plan of care. Prior Visits: Notes and results from previous visits were reviewed. Patient was last seen in the Emergency department on 03/04/18 for chronic left shoulder pain and b/l extremities burning pain. Patient was discharged home. Progress Notes: pt currently denies SI/HI, no concrete plans pt denied hallucinations pt is awaiting crisis evaluation at bedside pt was seen by social secretary and provided information on homeless shelters pt is doing well pt is comfortable pt is not in any distress PT IS MEDICALLY cleared for psych eval [id number] pt evaluated by crisis counselor, cleared by psych, pt can be continued to be treated/evaluated at outpt facility; pt can be released home pt remained comfortable pt denied SI/HI pt denied hallucinations pt is made aware of his medical results pt is encouraged no drugs, no smoking, no alcohol pt is encouraged hydration pt will f/u as directed pt will be discharged home (Alfredo Padilla) - Lab Interpretations Narrative Lab Interpretation (Text): 04/03/18 15:27 UDS- positive for cocaine and opiates AST- 111, ALT- 88, <2:1 ratio Lower extremity US - negative for DVT b/l (Raúl Garcia) Lab Results: 04/03/18 13:05 04/03/18 13:05 Lab Results 04/03/18 13:22: Urine Opiates Screen Positive H, Urine Methadone Screen Negative , Ur Barbiturates Screen Negative, Ur Phencyclidine Scrn Negative, Ur Amphetamines Screen Negative, U Benzodiazepines Scrn Negative, U Oth Cocaine Metabols Positive H, U Cannabinoids Screen Negative 04/03/18 13:22: Urine Color Yellow, Urine Appearance Sl cloudy, Urine pH 6.5, Ur Specific [place] 1.025, Urine Protein Trace H, Urine Glucose (UA) Negative, Urine Ketones Negative, Urine Blood Negative, Urine Nitrate Negative, Urine Bilirubin Negative, Urine Urobilinogen 4.0 H, Ur Leukocyte Esterase Negative, Urine RBC Negative, Urine WBC Negative, Urine Bacteria Trace 04/03/18 13:05: WBC 5.3 D, RBC 4.58, Hgb 13.0 L, Hct 39.6 L, MCV 86.5, MCH 28.4 , MCHC 32.8, RDW 13.0, Plt Count 260, MPV 9.5, Gran % 60.5, Lymph % (Auto) 25.8 , Randall % (Auto) 8.7 H, Eos % (Auto) 4.4, Baso % (Auto) 0.6, Gran # 3.20, Lymph # (Auto) 1.4, Randall # (Auto) 0.5, Eos # (Auto) 0.2, Baso # (Auto) 0.03 04/03/18 13:05: Salicylates < 1 L, Acetaminophen < 10.0 L 04/03/18 13:05: TSH 3rd Generation 0.54, Alcohol, Quantitative < 10 04/03/18 13:05: Sodium 141, Potassium 3.7, Chloride 106, Carbon Dioxide 26, Anion Gap 13, BUN 10, Creatinine 0.7 L, Est GFR ( Amer) > 60, Est GFR ( Non-Af Amer) > 60, Random Glucose 113 H, Calcium 8.6, Phosphorus 2.2 L, Magnesium 2.0, Total Bilirubin 0.6, AST 111 H, ALT 88 H, Alkaline Phosphatase 81 , Total Creatine Kinase 81, Total Protein 6.8, Albumin 3.5, Globulin 3.3, Albumin/Globulin Ratio 1.0 L - RAD Interpretation Narrative RAD Interpretations (Text): Report Date : 04/03/2018 14:24:32 Creator : Kodi Melendez MD Dictator : Kodi Melendez MD Visitor Services Information Assistant : Kodi Melendez MD FINDINGS: The visualized deep venous systems of both lower extremities are sonographically normal and compressible. Normal wave forms and augmentation are seen. There is no sonographic evidence for deep venous thrombosis in the visualized segments of both lower extremities. IMPRESSION: No sonographic evidence for deep venous thrombosis in the visualized segments of both lower extremities. (Alfredo Padilla) Radiology Orders: 04/03/18 12:37 DUPLEX LOWER EXTRM VEIN BILAT [US] Stat - EKG Interpretation EKG Interpretation (Text): 04/03/18 13:39 Sinus bradycardia (Raúl Garcia) 04/03/18 18:45 Sinus basim at 50 bpm, normal axis, no ectopy, no st-t changes, borderline EKG; unchanged compare with old ekg 07/2017 (Alfredo Padilla) - Medication Orders Current Medication Orders: Gabapentin (Neurontin) 300 mg PO STAT ROBINSON PRN Reason: Protocol Last Admin: 04/03/18 12:57 Dose: 300 mg Discontinued Medications Gabapentin (Neurontin) 300 mg PO STAT STA PRN Reason: Protocol Stop: 04/03/18 18:14 Sodium Chloride (Sodium Chloride 0.9%) 1,000 mls @ 999 mls/hr IV .Q1H1M STA Stop: 04/03/18 13:14 Last Admin: 04/03/18 12:56 Dose: 999 mls/hr eMAR Start Stop Document 04/03/18 12:56 SF (Rec: 04/03/18 12:56 SF [id number]) Intravenous Solution Start Date 04/03/18 Start Time 12:56 End Date 04/03/18 End time 13:57 Total Infusion Time 61 Tramadol HCl (Ultram) 50 mg PO STAT STA Stop: 04/03/18 12:20 Last Admin: 04/03/18 12:57 Dose: 50 mg MAR Pain Assessment Document 04/03/18 12:57 SF (Rec: 04/03/18 12:57 SF [id number]) Pain Reassessment Is this a pain reassessment? Yes Sleep Is patient sleeping during reassessment? No Presence of Pain Presence of Pain Yes <Raúl Garcia - Last Filed: 04/03/18 18:06> - Scribe Statement The provider has reviewed the documentation as recorded by the Scribe <Alfredo Padilla - Last Filed: 04/03/18 18:53> - Scribe Statement Krissy Saldivar All medical record entries made by the Scribe were at my direction and personally dictated by me. I have reviewed the chart and agree that the record accurately reflects my personal performance of the history, physical exam, medical decision making, and the department course for this patient. I have also personally directed, reviewed, and agree with the discharge instructions and disposition. (Alfredo Padilla) Disposition/Present on Arrival - Present on Arrival Any Indicators Present on Arrival: No - Disposition Have Diagnosis and Disposition been Completed?: Yes Disposition Time: 18:16 Patient Plan: Discharge <Raúl Garcia - Last Filed: 04/03/18 18:06> - Present on Arrival History of DVT/PE: No History of Uncontrolled Diabetes: No Urinary Catheter: No History of Decub. Ulcer: No History Surgical Site Infection Following: None <Alfredo Padilla - Last Filed: 04/03/18 18:53> - Disposition Diagnosis: Foot pain, bilateral, General medical exam, Major depressive disorder, severe, Non compliance w medication regimen, Polysubstance abuse Disposition: HOME/ ROUTINE Patient Problems: Current Active Problems Problem Status Onset Foot pain, bilateral Acute General medical exam Acute Major depressive disorder, severe Acute Non compliance w medication regimen Acute Polysubstance abuse Acute Condition: IMPROVED Discharge Instructions (ExitCare): Depression, Adult (DC), When You Have Depression and Another Health Problem, Yearly Physical for Adults Print Language: GUAMANIAN Additional Instructions: YONY RENNER, thank you for letting us take care of you today. Your provider was Alfredo Padilla MD and you were treated for bilateral foot pain. The emergency medical care you received today was directed at your acute symptoms. If you were prescribed any medication, please fill it and take as directed. It may take several days for your symptoms to resolve. Return to the Emergency Department if your symptoms worsen, do not improve, or if you have any other problems. Please contact your doctor or call one of the physicians/clinics you have been referred to that are listed on the Patient Visit Information form that is included in your discharge packet. Bring any paperwork you were given at discharge with you along with any medications you are taking to your follow up visit. Our treatment cannot replace ongoing medical care by a primary care provider outside of the emergency department. Thank you for allowing the [facility] team to be part of your care today. If you had an X-Ray or CT scan: A Radiologist will review the ED reading if any change in treatment is needed we will contact you. If you had a blood, urine, or wound culture: It will take several days for the results, if any change in treatment is needed we will contact you. If you had an STI test: It will take 48 hours for the results. Please call after 1 week if you have not heard back. Prescriptions: Gabapentin 300 mg PO TID #30 capsule Ibuprofen [Motrin] 400 mg PO QID PRN #30 tab PRN Reason: Pain, Mild (1-3) Referrals: [facility] [Outside] - Follow up with primary [facility] [place] [Outside] - Follow up with primary [facility] [Outside] - Follow up with primary [facility] [place] [Outside] - Follow up with primary Forms: [facility] (Andorran)
[2018-04-03] MEDS ORDERED: Sodium Chloride 0.9% 1,000 ML IV STA (12:14)
[2018-04-03 13:15] LABS: BASO # 0.03 K/mm3 (0.0-2.0); BASO % 0.6 % (0.0-3.0); EOS # 0.2 (0.0-0.7); EOS % 4.4 % (1.5-5.0); GRAN # 3.2 (1.4-6.5); GRAN % 60.5 % (50.0-68.0); LYMPH # 1.4 (1.2-3.4); LYMPH % 25.8 % (22.0-35.0); MEAN CELL VOLUME 86.5 fl (80.0-105.0); MEAN CORPUSCULAR HEMOGLOBIN 28.4 pg (25.0-35.0); MEAN CORPUSCULAR HGB CONC 32.8 g/dl (31.0-37.0); MEAN PLATELET VOLUME 9.5 fl (7.0-11.0); MONO # 0.5 (0.1-0.6); MONO % 8.7 % (1.0-6.0); RBC 4.58 10^6/uL (3.5-6.1); WHITE BLOOD COUNT 5.3 10^3/ul (4.5-11.0)
[2018-04-03 13:24] LABS: ACETAMINOPHEN < 10.0 ug/ml (10.0-20.0); ALBUMIN 3.5 g/dL (3.0-4.8); ALT/SGPT 88 U/L (7-56); AST/SGOT 111 U/L (17-59); BLOOD UREA NITROGEN 10 mg/dL (7-21); CALCIUM 8.6 mg/dL (8.4-10.5); GFR AFRICAN-AMERICAN > 60; GFR NON-AFRICAN AMERICAN > 60; SALICYLATE < 1 mg/dL (2.0-20.0)
[2018-04-03 13:27] LABS: PH,URINE 6.5 (4.7-8.0); URINE BILIRUBIN NEGATIVE (NEGATIVE); URINE BLOOD NEGATIVE (NEGATIVE); URINE GLUCOSE (UA) NEGATIVE (NEGATIVE); URINE LEUKOCYTE ESTERASE NEGATIVE Leu/uL (NEGATIVE); URINE PROTEIN TRACE mg/dL (<30 mg/dL)
[2018-04-03 13:28] LABS: URINE APPEARANCE SL CLOUDY (CLEAR); URINE COLOR YELLOW (YELLOW)
[2018-04-03 13:31] LABS: URINE BACTERIA TRACE (NEG); URINE RBC NEGATIVE /hpf (0-2); URINE WBC NEGATIVE /hpf (0-6)
[2018-04-03 13:47] LABS: BARBITURATES, UR NEGATIVE (NEGATIVE); BENZODIAZEPINES, UR NEGATIVE (NEGATIVE); OPIATES, UR POSITIVE (NEGATIVE); PHENCYCLIDINE, UR NEGATIVE (NEGATIVE)
--- NOTE | 2018-04-03 14:25 | US ---
HISTORY: Leg pain and swelling. Evaluate for DVT PHYSICIAN(S): Kodi Dumont MD. TECHNIQUE: Duplex sonography and color-flow Doppler with graded compression were used to evaluate the deep venous systems of both lower extremities. FINDINGS: The visualized deep venous systems of both lower extremities are sonographically normal and compressible. Normal wave forms and augmentation are seen. There is no sonographic evidence for deep venous thrombosis in the visualized segments of both lower extremities. IMPRESSION: No sonographic evidence for deep venous thrombosis in the visualized segments of both lower extremities.
[2018-04-03 18:43] VITALS: RESP 16
[2018-04-03 18:57] VITALS: BP 136/82; PULSE 68; O2SAT 99
--- NOTE | 2018-04-03 19:06 | CARD ---
APPROVED REPORT Date of service: 04/03/2018 EKG Measurement Heart [id number] <Conclusion> Sinus bradycardia Otherwise normal ECG
== END 2018-04-03 18:58 | disposition home or self-care (01) ==
LOC: ED 10:59
DX: M79.672 Pain in left foot (principal); M79.671 Pain in right foot; F32.2 Major depressive disorder, single episode, severe without psychotic features; F19.10 Other psychoactive substance abuse, uncomplicated; Z91.14 Patient's other noncompliance with medication regimen
CPT/HCPCS: 80053; 80320; 80324; 80329; 80345; 80346; 80349; 80353; 80358; 80361; 81001; 82550; 83735; 83992; 84100; 84443; 85025; 93005; 93970; 96360; 99285; J7030

== ENCOUNTER 2018-04-22 12:41 | Emergency (ER) | payer MEDICAID ==
[2018-04-22 12:42] VITALS: BMI 21.2
--- NOTE | 2018-04-22 13:02 | ED PDOC ---
Arrival/HPI - General Chief Complaint: Shortness Of Breath Time Seen by Provider: 04/22/18 12:53 Historian: Patient - History of Present Illness Narrative History of Present Illness (Text): 04/22/18 13:02 43 year old male who presents to the emergency department complaining of dyspnea and feeling exhausted for the past 2 days. Patient has a history of heroin and cocaine use. He smokes 3-4 packs of cigarettes per week. He mentions having occasional productive coughs with green and yellow phlegm. Patient also mentions having intermittent wheezing and hasn't used an inhaler. Patient admits to neuropathic pain in his feet and shoulder. He denies any recent travel or sick contact. Patient denies any fever, chills, chest pain, abdominal pain, recent falls, nausea, vomiting, headache, dizziness, or any other complaints. Time/Duration: < week Symptom Course: Unchanged Context: Home Past Medical History - Provider Review Nursing Documentation Reviewed: Yes - Past History Past History: Non-Contributing - Infectious Disease Hx of Infectious Diseases: None - Tetanus Immunization Tetanus Immunization: Unknown - Past Medical History Past Medical History: No Previous - Cardiac Hx Cardiac Disorders: No - Pulmonary Hx Tuberculosis: No - Neurological HX Cerebrovascular Accident: No - HEENT Hx HEENT Disorder: No - Renal Hx Renal Disorder: No - Endocrine/Metabolic Hx Endocrine Disorders: No - Hematological/Oncological Hx Cancer: No - Integumentary Hx Dermatological Disorder: No - Musculoskeletal/Rheumatological Hx Musculoskeletal Disorders: No - Gastrointestinal Hx Gastrointestinal Disorders: No - Genitourinary/Gynecological Hx Sexually Transmitted Diseases: No - Psychiatric Hx Bipolar Disorder: Yes Hx Depression: Yes Hx Substance Use: Yes - Past Surgical History Past Surgical History: No Previous - Surgical History Hx Orthopedic Surgery: Yes (Right ankle fx) - Anesthesia Hx Anesthesia: Yes Hx Anesthesia Reactions: No Hx Malignant Hyperthermia: No - Suicidal Assessment Feels Threatened In Home Enviroment: No Family/Social History - Physician Review Nursing Documentation Reviewed: Yes Family/Social History: No Known Family HX Smoking Status: Heavy Smoker > 10 Cigarettes Daily Hx Alcohol Use: Yes (beer/liquor) Amount per day: 6 Hx Substance Use: Yes Substance used: HEROIN, COCCAINE,opiates Hx Substance Use Treatment: Yes Allergies/Home Meds Allergies/Adverse Reactions: Allergies No Known Allergies Allergy (Verified 04/03/18 11:16) Review of Systems - Physician Review All systems were reviewed & negative as marked: Yes - Review of Systems Constitutional: absent: Fevers, Night Sweats Respiratory: SOB, Cough, Sputum, Wheezing Cardiovascular: absent: Chest Pain Gastrointestinal: absent: Abdominal Pain, Nausea, Vomiting Neurological: absent: Headache, Dizziness Physical Exam Vital Signs Reviewed: Yes Vital Signs Temp Pulse Resp BP Pulse Ox 04/22/18 12:55 20 100 04/22/18 12:45 98 F 68 20 131/81 100 Temperature: Afebrile Blood Pressure: Normal Pulse: Regular Respiratory Rate: Normal Appearance: Positive for: Unkept Mental Status: Positive for: Alert and Oriented X 3 - Systems Exam Head: Present: Atraumatic, Normocephalic Pupils: Present: PERRL Extroacular Muscles: Present: EOMI Conjunctiva: Present: Normal Mouth: Present: Moist Mucous Membranes Neck: Present: Normal Range of Motion Respiratory/Chest: Present: Clear to Auscultation, Good Air Exchange. No: Respiratory Distress, Accessory Muscle Use Cardiovascular: Present: Regular Rate and Rhythm, Normal S1, S2. No: Murmurs Abdomen: No: Tenderness, Distention, Peritoneal Signs Back: Present: Normal Inspection Upper Extremity: Present: Normal Inspection. No: Cyanosis, Edema Lower Extremity: Present: Normal Inspection, NORMAL PULSES (Good distal pulses) . No: Edema Neurological: Present: GCS=15, CN II-XII Intact, Speech Normal Skin: Present: Warm, Dry, Normal Color. No: Rashes Psychiatric: Present: Alert, Oriented x 3, Normal Insight, Normal Concentration Medical Decision Making ED Course and Treatment: 04/22/18 13:02 Impression: 43 year old male who is complaining of dyspnea and feeling exhausted. Differential Diagnosis included but are not limited to: Plan: -- EKG -- Labs -- Cardiac enzymes -- Duoneb -- Prednisone -- Reassess and disposition Prior Visits: Notes and results from previous visits were reviewed. Progress Notes: 04/22/18 14:03 EKG shows NSR at [address] elevations or QT prolongations. Interpreted by me. 04/22/18 15:00 Patient was reevaluated and continues to experience pain. He is requesting pain medication and time to rest. His Labs were reviewed and showed decreased potassium. Will order analgesic and PO potassium supplement for patient. - Lab Interpretations Lab Results: 04/22/18 13:30 08/29/18 13:30 Lab Results 04/22/18 13:30: Sodium 143, Potassium 3.1 L, Chloride 107, Carbon Dioxide 26, Anion Gap 14, BUN 12, Creatinine 0.7 L, Est GFR ( Amer) > 60, Est GFR ( Non-Af Amer) > 60, Random Glucose 82, Calcium 8.5, Total Bilirubin 1.2, AST 73 H D, ALT 67 H, Alkaline Phosphatase 73, Troponin I < 0.01, Total Protein 6.8, Albumin 3.6, Globulin 3.2, Albumin/Globulin Ratio 1.1 04/22/18 13:30: WBC 6.4 D, RBC 4.66, Hgb 13.3 L, Hct 39.5 L, MCV 84.8, MCH 28.5 , MCHC 33.7, RDW 12.9, Plt Count 286, MPV 8.9, Gran % 63.7, Lymph % (Auto) 24.1 , [place] % (Auto) 7.7 H, Eos % (Auto) 3.9, Baso % (Auto) 0.6, Gran # 4.07, Lymph # (Auto) 1.5, [place] # (Auto) 0.5, Eos # (Auto) 0.3, Baso # (Auto) 0.04 I have reviewed the lab results: Yes - RAD Interpretation Narrative RAD Interpretations (Text): 04/22/18 13:40 Chest X-ray: Creator : DR. Romeo, Madyson MEZA IMPRESSION: No focal consolidation, significant pleural effusion, or definite pneumothorax identified. Radiology Orders: 04/22/18 13:05 CHEST PORTABLE [RAD] Stat Cafeteria Monitor: Radiologist - EKG Interpretation Interpreted by ED Physician: Yes Type: 12 lead EKG - Medication Orders Current Medication Orders: Discontinued Medications Albuterol/Ipratropium (Duoneb 3 Mg/0.5 Mg (3 Ml) Ud) 3 ml IH STAT STA Stop: 04/22/18 13:05 Last Admin: 04/22/18 13:40 Dose: 3 ml Gabapentin (Neurontin) 300 mg PO STAT ONE PRN Reason: Protocol Stop: 04/22/18 15:16 Last Admin: 04/22/18 15:27 Dose: 300 mg Ibuprofen (Motrin Tab) 600 mg PO STAT STA Stop: 04/22/18 15:06 Last Admin: 04/22/18 15:27 Dose: 600 mg MAR Pain/Vitals Document 04/22/18 15:27 ANTONIO (Rec: 04/22/18 15:27 ANTONIO [id number]) Pain Reassessment Is This A Pain ReAssessment? No Sleep Is patient sleeping during reassessment? Yes Pain Scale Used Pain Scale Used Numeric Location Intensity 4 Scale Used Numeric Potassium Chloride (Potassium Chloride Oral Soln) 20 meq PO STAT STA Stop: 04/22/18 15:06 Last Admin: 04/22/18 15:28 Dose: 20 meq Prednisone (Prednisone Tab) 40 mg PO STAT STA Stop: 04/22/18 13:55 Last Admin: 04/22/18 14:15 Dose: 40 mg - Scribe Statement The provider has reviewed the documentation as recorded by the Patriciaibsonya Reaves Provider Scribe Attestation: All medical record entries made by the Scribe were at my direction and personally dictated by me. I have reviewed the chart and agree that the record accurately reflects my personal performance of the history, physical exam, medical decision making, and the department course for this patient. I have also personally directed, reviewed, and agree with the discharge instructions and disposition. Disposition/Present on Arrival - Present on Arrival Any Indicators Present on Arrival: No History of DVT/PE: No History of Uncontrolled Diabetes: No Urinary Catheter: No History of Decub. Ulcer: No History Surgical Site Infection Following: None - Disposition Have Diagnosis and Disposition been Completed?: No Diagnosis: Shortness of breath, Hypokalemia Disposition: HOME/ ROUTINE Disposition Time: 15:08 Patient Plan: Admission Patient Problems: Current Active Problems Problem Status Onset Shortness of breath Acute Hypokalemia Acute Condition: IMPROVED Discharge Instructions (ExitCare): Hypokalemia (DC), Shortness of Breath ( Dyspnea) (DC) Referrals: Odalis Mackenzie MD [Medical Doctor] - Follow up with primary [facility] at [facility] – [place] [Outside] - Follow up with primary Forms: [employer] ([place]ian)
[2018-04-22] MEDS ORDERED: MethylPREDNISolone 40 mg Vial IM STA (13:04)
[2018-04-22] MEDS ORDERED: Albuterol-Ipratrop 3 mg / 0.5 (3 ml) UD IH STA (13:04)
[2018-04-22 13:05] VITALS: TEMP 98
--- NOTE | 2018-04-22 13:29 | RAD ---
HISTORY: sob COMPARISON: Chest x-ray performed 08/01/17 TECHNIQUE: Chest, one view. FINDINGS: LUNGS: No focal consolidation. Please note that chest x-ray has limited sensitivity for the detection of pulmonary masses. PLEURA: No significant pleural effusion identified. No definite pneumothorax . CARDIOVASCULAR: The cardiomediastinal silhouette appears within normal limits of size. OSSEOUS STRUCTURES: No acute osseous abnormality identified. VISUALIZED UPPER ABDOMEN: Unremarkable. OTHER FINDINGS: None. IMPRESSION: No focal consolidation, significant pleural effusion, or definite pneumothorax identified.
[2018-04-22 13:51] LABS: BASO # 0.04 K/mm3 (0.0-2.0); BASO % 0.6 % (0.0-3.0); EOS # 0.3 (0.0-0.7); EOS % 3.9 % (1.5-5.0); GRAN # 4.07 (1.4-6.5); GRAN % 63.7 % (50.0-68.0); HEMOGLOBIN 13.3 g/dL (14.0-18.0); LYMPH # 1.5 (1.2-3.4); LYMPH % 24.1 % (22.0-35.0); MEAN CELL VOLUME 84.8 fl (80.0-105.0); MEAN CORPUSCULAR HEMOGLOBIN 28.5 pg (25.0-35.0); MEAN CORPUSCULAR HGB CONC 33.7 g/dl (31.0-37.0); MEAN PLATELET VOLUME 8.9 fl (7.0-11.0); MONO # 0.5 (0.1-0.6); MONO % 7.7 % (1.0-6.0); RBC 4.66 10^6/uL (3.5-6.1); RED CELL DISTRIBUTION WIDTH 12.9 % (11.5-14.5); WHITE BLOOD COUNT 6.4 10^3/ul (4.5-11.0)
[2018-04-22 14:09] LABS: ALB/GLOB RATIO 1.1 (1.1-1.8); ALBUMIN 3.6 g/dL (3.0-4.8); ALT/SGPT 67 U/L (7-56); AST/SGOT 73 U/L (17-59); BLOOD UREA NITROGEN 12 mg/dL (7-21); CALCIUM 8.5 mg/dL (8.4-10.5); GFR NON-AFRICAN AMERICAN > 60
[2018-04-22 14:15] LABS: TROPONIN I < 0.01 ng/mL
[2018-04-22] MEDS ORDERED: Potassium Chloride 20 mEq/15 ml LIQ UD PO STA (15:05)
[2018-04-22 15:59] VITALS: RESP 18; O2SAT 99
[2018-04-22 17:31] VITALS: BP 120/73; PULSE 68
--- NOTE | 2018-04-23 09:47 | CARD ---
APPROVED REPORT Date of service: 04/22/2018 EKG Measurement Heart [id number] <Conclusion> Normal sinus rhythm with sinus arrhythmia LVH by voltage No change
== END 2018-04-22 15:45 | disposition home or self-care (01) ==
LOC: ED 12:41
DX: E87.6 Hypokalemia (principal); R06.02 Shortness of breath; F17.210 Nicotine dependence, cigarettes, uncomplicated

== ENCOUNTER 2018-04-25 07:43 | Emergency (ER) | payer MEDICAID ==
[2018-04-25 07:44] VITALS: BMI 21.2
[2018-04-25 07:52] VITALS: RESP 18
--- NOTE | 2018-04-25 10:01 | ED PDOC ---
Arrival/HPI - General Chief Complaint: Substance Abuse Time Seen by Provider: 04/25/18 08:00 Historian: Patient EM Caveat: Intoxicated - History of Present Illness Narrative History of Present Illness (Text): 43 y/o M w/ h/o substance and alcohol abuse presenting to the ED after being found by EMS on the street altered. The patient had been using cocaine, alcohol and was found to be belligerent towards police. He was immediately brought to the hospital for clinical sobriety. A more complete history was unable to be obtained due to the patient's clinical condition Time/Duration: Prior to Arrival Symptom Onset: Sudden Activities at Onset: Emotional Upset Context: Street, Pedestrian Past Medical History - Past History Past History: Non-Contributing - Infectious Disease Hx of Infectious Diseases: None - Tetanus Immunization Tetanus Immunization: Unknown - Past Medical History Past Medical History: No Previous - Cardiac Hx Cardiac Disorders: No - Pulmonary Hx Tuberculosis: No - Neurological HX Cerebrovascular Accident: No - HEENT Hx HEENT Disorder: No - Renal Hx Renal Disorder: No - Endocrine/Metabolic Hx Endocrine Disorders: No - Hematological/Oncological Hx Cancer: No - Integumentary Hx Dermatological Disorder: No - Musculoskeletal/Rheumatological Hx Musculoskeletal Disorders: No - Gastrointestinal Hx Gastrointestinal Disorders: No - Genitourinary/Gynecological Hx Sexually Transmitted Diseases: No - Psychiatric Hx Bipolar Disorder: Yes Hx Depression: Yes Hx Substance Use: Yes - Past Surgical History Past Surgical History: No Previous - Surgical History Hx Orthopedic Surgery: Yes (Right ankle fx) - Anesthesia Hx Anesthesia: Yes Hx Anesthesia Reactions: No Hx Malignant Hyperthermia: No - Suicidal Assessment Feels Threatened In Home Enviroment: No Family/Social History - Physician Review Nursing Documentation Reviewed: Yes Family/Social History: Unknown Family HX Smoking Status: Heavy Smoker > 10 Cigarettes Daily Hx Alcohol Use: Yes (beer/liquor) Frequency of alcohol use: Daily Amount per day: 6 Hx Substance Use: Yes Substance used: HEROIN, COCCAINE,opiates Hx Substance Use Treatment: Yes Allergies/Home Meds Allergies/Adverse Reactions: Allergies No Known Allergies Allergy (Verified 04/25/18 07:52) Review of Systems - Review of Systems Systems not reviewed;Unavailable: Intoxicated Physical Exam Vital Signs Reviewed: Yes Vital Signs Temp Pulse Resp BP Pulse Ox 04/25/18 17:34 98.2 F 64 18 118/68 98 04/25/18 17:00 64 18 118/68 98 04/25/18 15:19 98.2 F 66 18 121/70 97 04/25/18 12:00 65 18 125/74 96 04/25/18 10:12 62 18 129/79 96 04/25/18 07:45 98.6 F 72 18 128/79 98 04/25/18 07:44 98.5 F 105 H 20 140/86 97 Temperature: Afebrile Blood Pressure: Normal Pulse: Regular Respiratory Rate: Normal Appearance: Positive for: Well-Appearing, Non-Toxic, Unkept Pain Distress: None Mental Status: Positive for: Agitated - Systems Exam Head: Present: Atraumatic, Normocephalic Pupils: Present: PERRL Extroacular Muscles: Present: EOMI Conjunctiva: Present: Injected Mouth: Present: Moist Mucous Membranes Respiratory/Chest: Present: Clear to Auscultation, Good Air Exchange Cardiovascular: Present: Regular Rate and Rhythm, Normal S1, S2 Abdomen: Present: Normal Bowel Sounds. No: Tenderness, Distention Upper Extremity: Present: Normal Inspection, NORMAL PULSES Lower Extremity: Present: Normal Inspection, NORMAL PULSES Neurological: Present: GCS=15, Speech Normal, Gait Normal Skin: Present: Warm, Dry, Normal Color Psychiatric: Present: Alert, Oriented x 3, Agitated Medical Decision Making ED Course and Treatment: Impression 43 y/o M w/ alcohol abuse presenting to the ED for alcohol intoxication Plan --Serum alcohol level --POC glucose --Ativan --Haldol --Reassess and disposition for clinical sobriety Progress Notes 04/25/18 09:15 Patient noted to be combatant towards staff. Will be restrained. 04/25/18 9:58 Patient chemically restrained and resting comfortably in bed. 04/25/18 17:00 Patient reassessed and able to walk without assistance. He is not tremulous or experiencing other symptoms worrisome for alcohol withdrawal. Patient is educated on the importance of abstaining from alcohol. He is stable for discharge. - Lab Interpretations Lab Results: Lab Results 04/25/18 12:20: Alcohol, Quantitative 76 H - Medication Orders Current Medication Orders: Discontinued Medications Haloperidol Lactate (Haldol) 5 mg IM STAT STA PRN Reason: Protocol Stop: 04/25/18 08:03 Last Admin: 04/25/18 08:10 Dose: 5 mg IM Administration Charges Document 04/25/18 08:10 EWO (Rec: 04/25/18 08:10 EWO [id number]) Injection Site MAR Injection Site Left Vastus Lateralis Charges for Administration # of IM Administrations 1 Lorazepam (Ativan) 2 mg IM ONCE ONE PRN Reason: Protocol Stop: 04/25/18 08:02 Last Admin: 04/25/18 08:10 Dose: Disposition/Present on Arrival - Present on Arrival Any Indicators Present on Arrival: No History of DVT/PE: No History of Uncontrolled Diabetes: No Urinary Catheter: No History of Decub. Ulcer: No History Surgical Site Infection Following: None - Disposition Have Diagnosis and Disposition been Completed?: Yes Diagnosis: Alcohol intoxication Disposition: HOME/ ROUTINE Disposition Time: 17:11 Patient Plan: Discharge Condition: IMPROVED Discharge Instructions (ExitCare): Alcohol Abuse and Alcoholism (DC) Referrals: Odalis Mackenzie MD [Medical Doctor] - Follow up with primary [facility] at [facility] [place] [Outside] - Follow up with primary Forms: [employer] ([place]ese)
[2018-04-25 15:19] VITALS: TEMP 98.2
[2018-04-25 17:15] VITALS: BP 118/68; PULSE 64; O2SAT 98
== END 2018-04-25 17:34 | disposition home or self-care (01) ==
LOC: ED 07:43
DX: F10.129 Alcohol abuse with intoxication, unspecified (principal); F17.210 Nicotine dependence, cigarettes, uncomplicated
CPT/HCPCS: 80320; 96372; 99285; J1630; J2060